=== PATIENT | male | born 1985 | race Caucasian/White ===

== ENCOUNTER → 2019-03-06 | Outpatient (CLI) | payer BC ==
--- NOTE | 2019-03-06 17:49 | US ---
EXAMINATION TYPE: US kidneys/renal and bladder DATE OF EXAM: 03/06/2019 COMPARISON: NONE CLINICAL HISTORY: N20.0 Calculus of Kidney. LLQ pain HX of kidney stones. EXAM MEASUREMENTS: Right Kidney: 9.5 x 4.8 x 3.9 cm Left Kidney: 10.2 x 5.3 x 4.0 cm Right Kidney: Limited lower pole due to bowel gas. Left Kidney: No hydronephrosis or masses seen Bladder: wnl Bilateral Jets seen: Yes IMPRESSION: Normal kidneys. No evidence of renal mass or obstruction. No calculus identified.
== END ==
LOC: RADUSMAIN 16:53
PROVIDERS: ATTEND Family Medicine
DX: N20.0 Calculus of kidney (principal)
CPT/HCPCS: 76770